=== PATIENT | female | born 1955 | race Caucasian/White ===

== ENCOUNTER 2018-04-14 06:52 | Day surgery (SDC) | payer BC ==
[~2018-04-14 06:52] MED LIST: ACETAMINOPHEN 1,000 MG/100 ML BTL IV ONE; CEFAZOLIN 2 Gram 2 GM/50 ML BAG IVPB ONE; FAMOTIDINE 20MG TABLET PO ONE; MECLIZINE 25 MG TABLET PO ONE; METOCLOPRAMIDE 10 MG TABLET PO ONE
[2018-04-14] MEDS ORDERED: HYDROCODONE/APAP 5/325MG TABLET PO ONE (06:53)
[2018-04-14] MEDS ORDERED: DESFLURANE 240 ML BTL INH ONE (06:53)
[2018-04-14] MEDS ORDERED: MIDAZOLAM HCL 2MG/2ML VIAL IV ONE (06:53)
[2018-04-14] MEDS ORDERED: ONDANSETRON HCL IV 4 MG/2 ML VIAL IVP ONE (06:53)
[2018-04-14] MEDS ORDERED: ROCURONIUM BROMIDE 50MG/5ML VIAL IV ONE (06:53)
[2018-04-14] MEDS ORDERED: PROPOFOL 10 MG/ML VIAL IV ONE (06:53)
[2018-04-14] MEDS ORDERED: DEXAMETHASONE 4 MG/ML 1ML VIAL IVP ONE (06:53)
[2018-04-14] MEDS ORDERED: BUPIVACAINE 0.25% W/EPI MPF 30ML VIAL IVP ONE (06:53)
[2018-04-14] MEDS ORDERED: SUCCINYLCHOLINE 20 MG/ML 10ML IVP ONE (06:53)
[2018-04-14] MEDS ORDERED: HYDROMORPHONE HCL 2 MG/ML VIAL IV ONE (06:53)
[2018-04-14] MEDS ORDERED: LIDOCAINE 2% MDV (20MG/ML) 20ML VIAL IV ONE (06:53)
[2018-04-14] MEDS ORDERED: FENTANYL PF 100MCG/2ML VIAL IV ONE ×2 (06:53)
[2018-04-14 07:58] LABS: BASO % 0.7 % (0-6); EOS % 7.2 % (0-6); GRAN % 46.1 % (47-80); HEMATOCRIT 39.2 % (35.0-47.0); HEMOGLOBIN 12.6 gm/dl (11.6-16.0); MEAN CELL VOLUME 96.6 fl (81-97); MEAN CORPUSCULAR HGB CONC 32.1 g/dl (32-36); MEAN PLATELET VOLUME 9.3 fl (7.4-10.4); PLATELET COUNT 360 K/uL (130-400); RED BLOOD COUNT 4.06 M/uL (3.80-5.40); RED CELL DISTRIBUTION WIDTH 12.6 % (11.5-14.5); WHITE BLOOD COUNT W/O DIFF 9.5 K/uL (4.2-12.2)
[2018-04-14 08:14] LABS: BLOOD UREA NITROGEN 12 mg/dL (8-23); CREATININE 0.6 mg/dL (0.5-0.9); EST GLOMERULAR FILTRATION RATE > 60 mL/min; GLUCOSE,RANDOM 100 mg/dL (74-109)
--- NOTE | 2018-04-15 08:50 | Operative Note ---
DATE OF SURGERY: 04/14/2018 Surgeon: Smooth Wharton DO PREOPERATIVE DIAGNOSIS: Incisional hernia. POSTOPERATIVE DIAGNOSIS: Incisional hernia. OPERATION: Laparoscopic incisional herniorrhaphy with mesh. Indication: The patient is a 62-year-old female who underwent a prior open aortobifem. She did develop an incisional hernia just to the right of her navel. Did obtain a CT scan which did note a 3 cm hernia. We did discuss repair. Risks, benefits, and alternatives were discussed. Risks include bleeding, infection, acute or chronic pain, recurrent, injury to underlying visceral structures. She understood this fully. Thereafter, consent was signed and questions answered. PROCEDURE: The patient was taken to the operating room and placed in a supine position. General anesthesia was administered per the department of anesthesia. Orogastric tube inserted. Adequate timeout was performed. She did receive preoperative antibiotics as well as DVT prophylaxis. At this time, the left upper quadrant region was cannulated with an 11 mm Visiport. All abdominal layers were traversed under direct visualization. The whole left side was clean; however, midline was covered with some omental adhesions. Additional 5 mm right flank port was then placed. There was no bowel noted. The hernia was noted. This all did contain omentum without any evidence of large or small bowel. Adhesiolysis was completed with the [employer]. Again no bowel was encountered. This did clear up the right side where an additional 5 mm port was placed. The hernia measured about 3 cm. The falciform ligament was then taken off superiorly. This was then mapped out. A 20 x 15 Proceed mesh was obtained. Four preplaced cardinal stitches were placed on the mesh. This was doubly scrolled and placed in an intraperitoneal position. The cephalad and caudad transfascial stitches were grasped and held in place. Each side was unscrolled and held in place with an additional transfascial stitch. The mesh was then tacked in place around the periphery in a 360-degree fashion with a tacking device. Intercrown was also placed. The hernia was centered on the mesh. We had excellent 4 cm overlap on all sides. The scope was then flipped around. There was no bleeding noted, no bowel injury noted. The patient was then leveled out and pneumoperitoneum was released. All ports removed. The fascia was closed with 0 Vicryl in a [id number] fashion, skin at all 3 ports closed with 4-0 Vicryl. She was taken to the recovery room in satisfactory condition. FINDINGS AT THE TIME OF SURGERY: Incisional hernia repaired as above. MTDD
== END 2018-04-14 10:20 | disposition home or self-care (01) ==
LOC: SUR 06:52
PROVIDERS: ATTEND Surgery
DX: K43.2 Incisional hernia without obstruction or gangrene (principal); I10 Essential (primary) hypertension; E78.00 Pure hypercholesterolemia, unspecified; Z79.01 Long term (current) use of anticoagulants
CPT/HCPCS: 49654; 00752; 64486; 85025; 80048; 93005; J2405; J3010; J1170; J0690; 76942; J0330